=== PATIENT | female | born 1965 | race Caucasian/White ===

== ENCOUNTER → 2022-08-07 | Outpatient (CLI) | payer BC, OTHER | LOC: M SOG 08:32 | PROVIDERS: ATTEND Orthopaedic Surgery Hand Surgery | DX: M79.641 Pain in right hand (principal) ==

== ENCOUNTER → 2024-04-10 | Outpatient (REF) | payer OTHER | LOC: M LAB REF 07:48 | PROVIDERS: ATTEND Surgery | DX: L90.5 Scar conditions and fibrosis of skin (principal) ==